=== PATIENT | female | born 1940 | race Caucasian/White ===

== ENCOUNTER 2022-03-29 12:54 | Emergency (ER) | payer MEDICARE, BC ==
[~2022-03-29 12:54] MED LIST: Iopamidol 300 61% 100 ML VIAL FS ONE
[2022-03-29 13:33] LABS: Bilirubin Neg (Negative); Blood, Urine Negative (Negative); Clarity Clear (Clear); Glucose, Urine (Dipstick) Normal (Negative); Ketone, Urine Negative (Negative); Leukocyte Negative (Negative); Nitrite Negative (Negative); Protein, Urine (Dipstick) Negative (Neg-Trace); Urobilinogen Normal mg/dL (Less than 2); pH, Urine 6.5 (5.0-9.0)
[2022-03-29 13:39] LABS: #Eosinphils 0.1 10x3/uL (0.0-0.5); #Monocytes 0.6 10x3/uL (0.0-1.1); #Neutrophils 4.4 10x3/uL (1.5-8.4); %Basophils 0.3 % (0.0-2.0); %Eosinophils 1.8 % (0.0-6.0); %Lymphocytes 17.1 % (18.0-47.0); %Neutrophils 71.3 % (40.0-75.0); Hemoglobin 11.5 g/dL (12.0-15.5); Mean Corpuscular HGB CONC 31.9 g/dL (32.0-36.0); Mean Corpuscular Hemoglobin 27.6 pg (27.0-33.0); Mean Corpuscular Volume 86.3 fl (81.6-98.3); Mean Platelet Volume 9.8 fl (7.4-10.4); Platelet Count 227 10x3/uL (150-450); RBC Distribution Width 12.5 % (11.5-14.5); Red Blood Cell (RBC) Count 4.17 10x6/uL (3.90-5.03); White Blood Cell (WBC) Count 6.1 10x3/uL (3.5-10.5)
[2022-03-29 13:52] LABS: ALT (SGPT) 12 U/L (8-55); AST (SGOT) 18 U/L (5-34); Albumin 4.2 g/dL (3.4-4.8); Alkaline Phosphatase 65 U/L (40-110); Anion Gap 11 mmol/L (10-20); BUN (Urea Nitrogen) 14 mg/dL (9.8-20.1); Bilirubin, Total 0.5 mg/dL (0.2-1.2); Calc. Creatinine Clearance 0 mL/min (70-130); Calcium 8.9 mg/dL (7.8-10.44); Carbon Dioxide 26 mmol/L (23-31); Chloride 100 mmol/L (98-107); Globulin 2.5 g/dL (2.4-3.5); Glucose 98 mg/dL (83-110); Potassium 4.2 mmol/L (3.5-5.1); Protein, Total 6.7 g/dL (5.8-8.1); Sodium 133 mmol/L (136-145)
== END 2022-03-29 15:27 | disposition home or self-care (01) ==
LOC: CSHERS 12:54
DX: K57.32 Diverticulitis of large intestine without perforation or abscess without bleeding (principal)
CPT/HCPCS: 36415; 74177; 80053; 81003; 82274; 85025; 86850; 86900; 86901; Q9967

== ENCOUNTER 2022-05-16 19:42 | Emergency (ER) | payer MEDICARE, BC ==
[2022-05-16] MEDS ORDERED: Amlodipine 5 MG TAB ONE (20:39)
== END 2022-05-16 20:56 | disposition home or self-care (01) ==
LOC: CSHERS 19:42
DX: U07.1 COVID-19 (principal)
CPT/HCPCS: U0003; U0005; 99283

== ENCOUNTER 2023-12-01 13:57 | Outpatient (CLI) | payer MEDICARE, BC ==
[2023-12-01 16:37] LABS: Hematocrit 40.7 % (34.9-44.5); Hemoglobin 13.8 g/dL (12.0-15.5); Mean Corpuscular HGB CONC 33.9 g/dL (32.0-36.0); Mean Corpuscular Hemoglobin 28.8 pg (27.0-33.0); Mean Corpuscular Volume 84.8 fl (81.6-98.3); Mean Platelet Volume 9.8 fl (7.4-10.4); Platelet Count 253 10x3/uL (150-450); RBC Distribution Width 12.3 % (11.5-14.5); White Blood Cell (WBC) Count 8.7 10x3/uL (3.5-10.5)
[2023-12-01 17:15] LABS: Anion Gap 21 mmol/L (10-20); BUN (Urea Nitrogen) 15 mg/dL (9.8-20.1); Calc. Creatinine Clearance 0 mL/min (70-130); Calcium 8.2 mg/dL (7.8-10.44); Carbon Dioxide 12 mmol/L (23-31); Chloride 98 mmol/L (98-107); Estimated GFR 47; Glucose 126 mg/dL (83-110); Sodium 126 mmol/L (136-145)
[2023-12-01 17:19] LABS: Potassium 4.9 mmol/L (3.5-5.1)
== END 2023-12-01 13:58 | disposition home or self-care (01) ==
LOC: CSHLAB 13:57
PROVIDERS: ATTEND Surgery
DX: Z01.812 Encounter for preprocedural laboratory examination (principal); C56.1 Malignant neoplasm of right ovary
CPT/HCPCS: 80048; 85027

== ENCOUNTER 2024-01-31 09:25 | Outpatient (CLI) | payer MEDICARE, BC ==
[2024-01-31] MEDS ORDERED: Iopamidol 300 61% 100 ML VIAL FS ONE (13:19)
== END 2024-01-31 09:26 | disposition home or self-care (01) ==
LOC: CSHCT 09:25
PROVIDERS: ATTEND Internal Medicine Hematology & Oncology
DX: C56.1 Malignant neoplasm of right ovary (principal); J94.8 Other specified pleural conditions; R18.8 Other ascites
CPT/HCPCS: 71260; 74177; 82565